=== PATIENT | female | born 1960 | race Caucasian/White ===

== ENCOUNTER → 2024-12-21 12:41 | Outpatient (REF) | payer MEDICARE, SELFPAY | LOC: HWRAD 12:41 | PROVIDERS: ATTENDING PHYSICIAN Physician Assistant Medical | DX: M54.50 Low back pain, unspecified (principal) | CPT/HCPCS: 72110 ==

== ENCOUNTER → 2025-02-12 13:55 | Outpatient (REF) | payer MEDICARE, SELFPAY | LOC: HWRAD 13:55 | PROVIDERS: ATTENDING PHYSICIAN Physician Assistant Medical | DX: Z13.820 Encounter for screening for osteoporosis (principal); Z78.0 Asymptomatic menopausal state | CPT/HCPCS: 77080 ==

== ENCOUNTER → 2025-02-20 09:44 | Outpatient (REF) | payer MEDICARE, SELFPAY | LOC: PAVMRI 09:44 | PROVIDERS: ATTENDING PHYSICIAN Physician Assistant; FAMILY PHYSICIAN Physician Assistant Medical | DX: S32.050A Wedge compression fracture of fifth lumbar vertebra, initial encounter for closed fracture (principal) | CPT/HCPCS: 72148 ==

== ENCOUNTER → 2025-04-22 11:21 | Outpatient (REF) | payer MEDICARE, SELFPAY | LOC: HWRCS 11:21 | PROVIDERS: ATTENDING PHYSICIAN Internal Medicine Cardiovascular Disease; FAMILY PHYSICIAN Physician Assistant Medical | DX: R06.02 Shortness of breath (principal) | CPT/HCPCS: 78452; 93017; A9500; J2785 ==